=== PATIENT | male | born 1970 | race Caucasian/White ===

== ENCOUNTER → 2016-03-24 | Outpatient (CLI) | payer BC ==
--- NOTE | 2016-03-24 09:24 | CT ---
EXAMINATION TYPE: CT abdomen w con DATE OF EXAM: 03/24/2016 9:06 AM COMPARISON: NONE HISTORY: Gallstone, GERD CT DLP: 1179.9 mGycm CONTRAST: CT scan of the abdomen is performed with Oral Contrast and with IV Contrast, patient injected with 10 0 ml mL of Omnipaque 300. FINDINGS: LUNG BASES-: No visible nodule. No infiltrate. LIVER/GB: No calcified gallstones. No space occupying hepatic lesion. Biliary tree is of normal ca liber. PANCREAS: No inflammation. No distinct mass. SPLEEN: There is evidence of splenomegaly with craniocaudal measurement of 15.6 cm. No lesion seen. ADRENALS: No nodule. No thickening. KIDNEYS/BLADDER: No hydronephrosis. No nephrolithiasis. No disctinct renal mass. BOWEL: The visualized gastrointestinal tract is grossly unremarkable. LYMPH NODES: No greater than 1cm abdominal or pelvic lymph nodes are appreciated. AORTA: No significant abnormality. OSSEOUS STRUCTURES: Degenerative disc space narrowing and disc bulging at L4-5. OTHER: No significant additional abnormality is seen. IMPRESSION: 1. Splenomegaly. Otherwise unremarkable examination.
== END | disposition home or self-care (01) ==
LOC: RADCTMAIN 08:07
PROVIDERS: ATTEND Family Medicine
DX: R16.1 Splenomegaly, not elsewhere classified (principal)
CPT/HCPCS: 74160; Q9967